=== PATIENT | female | born 1955 | race Caucasian/White ===

== ENCOUNTER 2022-01-29 16:36 | Outpatient (REF) | payer OTHER, SELFPAY | END 2022-01-29 16:37 | disposition home or self-care (01) | LOC: LBN 16:36 | PROVIDERS: Visit Provider Nurse Practitioner Family | DX: R30.0 Dysuria (principal) | CPT/HCPCS: 87086 ==

== ENCOUNTER 2022-01-29 17:01 | Outpatient (REF) | payer OTHER, SELFPAY | END 2022-01-29 17:02 | disposition home or self-care (01) | LOC: LBN 17:01 | PROVIDERS: Visit Provider Nurse Practitioner Family ==